=== PATIENT | female | born 1985 | race Caucasian/White ===

== ENCOUNTER 2017-10-31 16:07 | Inpatient (IN) ==
[2017-10-31 16:39] LABS: Basophils % 0.4 % (0.0-0.8); Eosinophils # 0.1 10*3/uL (0.0-0.87); Eosinophils % 0.9 % (0.00-10.9); Hematocrit 28.4 VOL% (35.7-47.0); Hemoglobin 9.3 GM/DL (12.0-16.0); Immature Granulocytes % 0.8 %; Immature Granulocytes Absolute 0.08 #; Lymphocytes # 2.8 10*3/uL (1.4-4.0); Lymphocytes % 26.9 % (21.3-54.2); Mean Corpuscular HGB Conc 32.7 GM/DL (32-36); Mean Corpuscular Hemoglobin 27 PG (27-34); Mean Corpuscular Volume 82.8 FL (87-102); Mean Platelet Volume 11.3 FL (9.6-12.0); Monocytes # 0.7 10*3/uL (0.11-0.8); Monocytes % 7.2 % (1.7-12.7); Neutrophils # 6.5 10*3/uL (1.4-7.4); Neutrophils % 63.8 % (38.7-73.9); Platelet Count 371 T/CUMM (130-400); Red Blood Count 3.43 MC/CUMM (3.8-5.5); Red Cell Distribution Width 13.8 % (9.3-17.3); White Blood Count 10.2 T/CUMM (4-12)
[2017-10-31 16:51] LABS: INR 0.9; PT Patient Result 9.4 SECS; Partial Thromboplastin Time 23.8 SECS (0-40)
[2017-10-31 17:00] LABS: Alanine Aminotransferase 15 U/L (13-56); Albumin 2.6 G/DL (3.4-5.0); Alkaline Phosphatase 127 U/L (45-117); Aspartate Amino Transferase 22 U/L (0-37); Bilirubin,Direct < 0.100 MG/DL (0.0-0.20); Bilirubin,Total < 0.39 MG/DL (0.2-1.0); Blood Urea Nitrogen 11 MG/DL (7-18); Calcium 9.1 MG/DL (8.5-10.1); Glucose 78 MG/DL (74-106); Osmolality,Calculated 267.1 MOS/KG (273-304); Potassium 4.2 MMOL/L (3.5-5.1); Sodium 135 MMOL/L (136-145); Total Protein 6.3 G/DL (6.4-8.3); Uric Acid 5.7 MG/DL (2.6-6.0)
[2017-10-31] MEDS ORDERED: MAGNESIUM SULF RIDER 4 GM in PREMIX 1 EACH IV ONE (17:45)
[2017-10-31] MEDS: LACTATED RINGERS 1,000 ML IV SCH (18:00)
[2017-10-31] MEDS: MAGNESIUM SULF DRIP 40 GM/1,000 ML ML IV SCH (18:30)
[2017-10-31] MEDS ORDERED: LABETALOL 100 MG TABLET ONE (20:28)
[2017-10-31] MEDS: LABETALOL 200 MG TABLET PO SCH (20:33)
[2017-10-31] MEDS: ACETAMINOPHEN 500 MG TABLET PO PRN (22:52)
[2017-11-01] MEDS: ACETAMINOPHEN 500 MG TABLET PO PRN ×3 (07:10→20:32)
[2017-11-01] MEDS: LABETALOL 200 MG TABLET PO SCH ×3 (08:04→20:31)
[2017-11-01] MEDS ORDERED: LABETALOL 100 MG TABLET ONE ×2 (08:04→13:54)
[2017-11-01] MEDS: BETAMETH SODIUM PHOS/ACETATE 30 MG/5 ML VIAL IM SCH (08:05)
[2017-11-01] MEDS: MAGNESIUM SULF DRIP 40 GM/1,000 ML ML IV SCH (15:02)
[2017-11-01] MEDS ORDERED: ONDANSETRON 4 MG/2 ML VIAL IV PRN (16:21)
[2017-11-01 16:35] LABS: Collection Time,Urine 24 HOURS; Total Volume,Urine 3850 ML (400-2000)
[2017-11-01 16:54] LABS: Total Protein 24 Hr Ur Result 4504 MG/24HR (0-149.1)
[2017-11-01] MEDS: LACTATED RINGERS 1,000 ML IV SCH ×2 (17:26→19:54)
[2017-11-01 18:16] LABS: Creatinine 24 Hr Urine Result 1.73 G/24HR (0.60-1.80); Creatinine Clearance Urine 145.39 ML/MIN (70-115)
[2017-11-02 07:55] VITALS: BP 157/86
[2017-11-02] MEDS: BETAMETH SODIUM PHOS/ACETATE 30 MG/5 ML VIAL IM SCH (08:06)
[2017-11-02] MEDS: LABETALOL 200 MG TABLET PO SCH (08:50)
[2017-11-02] MEDS ORDERED: LABETALOL 100 MG TABLET ONE (09:26)
[2017-11-02] MEDS ORDERED: LABETALOL 100 MG TABLET PO ONE (09:30)
[2017-11-02] MEDS: LACTATED RINGERS 1,000 ML IV SCH (09:33)
[2017-11-02] MEDS ORDERED: LABETALOL 200 MG TABLET PO SCH (17:00)
== END 2017-11-02 17:46 | disposition home or self-care (01) | DRG 782 ==
LOC: N.LDOUT 16:07 → N.LD 16:08
PROVIDERS: ADMIT Specialist; ATTEND Specialist

== ENCOUNTER 2017-11-03 23:10 | Inpatient (IN) ==
[2017-11-03] MEDS ORDERED: LACTATED RINGERS 1,000 ML IV SCH (23:45)
[2017-11-03] MEDS ORDERED: ONDANSETRON 4 MG/2 ML VIAL IV PRN (23:54)
[2017-11-03] MEDS ORDERED: BUTORPHANOL 2 MG/ML VIAL IV PRN (23:54)
[2017-11-03] MEDS ORDERED: FUROSEMIDE 40 MG/4 ML VIAL IV ONE (23:58)
[2017-11-03] MEDS ORDERED: FUROSEMIDE 40 MG/4 ML VIAL ONE (23:59)
[2017-11-04] MEDS ORDERED: ceFAZolin 2,000 MG in PREMIX 1 EACH IV ONE
[2017-11-04] MEDS ORDERED: OXYTOCIN/LR 20 UNIT/1,000 ML BAG IV ONE ×2 (00:07→01:40)
[2017-11-04] MEDS ORDERED: CITRIC ACID/SODIUM CITRATE 30 ML UDCUP ONE (00:14)
[2017-11-04] MEDS ORDERED: FAMOTIDINE 20 MG/2 ML VIAL IV ONE (00:17)
[2017-11-04] MEDS ORDERED: CITRIC ACID/SODIUM CITRATE 30 ML UDCUP PO ONE (00:17)
[2017-11-04] MEDS ORDERED: hydrALAZINE 20 MG/1 ML VIAL IV ONE (00:30)
[2017-11-04 00:43] LABS: Basophils % 0.1 % (0.0-0.8); Eosinophils % 0.2 % (0.00-10.9); Hematocrit 26.4 VOL% (35.7-47.0); Hemoglobin 8.5 GM/DL (12.0-16.0); Immature Granulocytes % 3.2 %; Immature Granulocytes Absolute 0.43 #; Lymphocytes # 3.6 10*3/uL (1.4-4.0); Mean Corpuscular HGB Conc 32.2 GM/DL (32-36); Mean Corpuscular Hemoglobin 27 PG (27-34); Mean Corpuscular Volume 84.6 FL (87-102); Mean Platelet Volume 11.6 FL (9.6-12.0); Monocytes # 1.1 10*3/uL (0.11-0.8); Monocytes % 8.4 % (1.7-12.7); Neutrophils # 8.2 10*3/uL (1.4-7.4); Neutrophils % 61.1 % (38.7-73.9); Platelet Count 400 T/CUMM (130-400); Red Blood Count 3.12 MC/CUMM (3.8-5.5); Red Cell Distribution Width 14.2 % (9.3-17.3); White Blood Count 13.4 T/CUMM (4-12)
[2017-11-04 00:58] LABS: Fibrinogen Quant Value 322 MG% (200-400); INR 0.9; PT Patient Result 9.2 SECS; Partial Thromboplastin Time < 21.0 SECS (0-40)
[2017-11-04 01:05] LABS: Alanine Aminotransferase 14 U/L (13-56); Albumin 2.5 G/DL (3.4-5.0); Alkaline Phosphatase 113 U/L (45-117); Aspartate Amino Transferase 20 U/L (0-37); Bilirubin,Total < 0.39 MG/DL (0.2-1.0); Blood Urea Nitrogen 16 MG/DL (7-18); Calcium 9.6 MG/DL (8.5-10.1); Glucose 87 MG/DL (74-106); Osmolality,Calculated 280.3 MOS/KG (273-304); Potassium 4.7 MMOL/L (3.5-5.1); Sodium 141 MMOL/L (136-145); Total Protein 5.7 G/DL (6.4-8.3)
[2017-11-04] MEDS ORDERED: MAGNESIUM SULF RIDER 100 ML IV ONE (01:09)
[2017-11-04] MEDS ORDERED: MAGNESIUM SULF DRIP 40 GM/1,000 ML ML IV SCH (01:30)
[2017-11-04] MEDS ORDERED: ONDANSETRON 4 MG/2 ML VIAL IV PRN (01:40)
[2017-11-04] MEDS ORDERED: ACETAMINOPHEN 325 MG TABLET PO PRN (01:40)
[2017-11-04] MEDS ORDERED: LANOLIN 50% CREAM 0.3 OZ TUBE TOP PRN (01:40)
[2017-11-04] MEDS ORDERED: DIPH/TET/ACEL PERT BOOSTER VACCINE 0.5 ML VIAL IM ONE (01:40)
[2017-11-04] MEDS ORDERED: IBUPROFEN 800 MG TABLET PO PRN (01:40)
[2017-11-04] MEDS ORDERED: BISACODYL 10 MG SUPP RECTAL PRN (01:40)
[2017-11-04] MEDS ORDERED: HYDROCORTISONE 2.5% RECTAL CREAM 30 GM TUBE TOP PRN (01:40)
[2017-11-04] MEDS ORDERED: oxyCODONE/ACETAMINOPHEN 5-325 MG TABLET PO PRN (01:40)
[2017-11-04] MEDS ORDERED: BENZOCAINE 20%/MENTHOL 0.5% SPRAY 56 GM CAN TOP PRN (01:40)
[2017-11-04] MEDS ORDERED: MEASLES/MUMPS/RUBELLA VACCINE 0.5 ML VIAL SUBCUT ONE (01:40)
[2017-11-04] MEDS ORDERED: WITCH HAZEL PADS 100/JAR TOP PRN (01:40)
[2017-11-04] MEDS ORDERED: RHO(D) IMMUNE GLOBULIN 300 MCG SYRINGE IM ONE (01:40)
[2017-11-04 02:18] LABS: Cord Arterial Blood HCO3 22.2 MMOL/L
[2017-11-04 02:22] LABS: Cord Venous Blood HCO3 23.7 MMOL/L; Cord Venous Blood PCO2 41.7 MMHG; Cord Venous Blood PO2 28.4
[2017-11-04] MEDS: LABETALOL 200 MG TABLET PO SCH ×3 (02:22→17:37)
[2017-11-04] MEDS ORDERED: KETAMINE 500 MG/10 ML VIAL ONE (03:33)
[2017-11-04] MEDS ORDERED: MORPHINE 10 MG/10 ML VIAL ONE (03:33)
[2017-11-04] MEDS ORDERED: fentaNYL 100 MCG/2 ML VIAL ONE (03:36)
[2017-11-04] MEDS ORDERED: DEXAMETHASONE 10 MG/1 ML VIAL ONE (03:40)
[2017-11-04 04:13] LABS: Apearance,Urine CLOUDY (Clear); Bacteria,Urine Occasional /HPF (Few); Bilirubin,Urine Negative (Negative); Blood, Urine Negative (Negative); Glucose,Urine (UA) Negative (Negative); Ketones,Urine Negative (Negative); Mucus,Urine Many /LPF (Occasional); Nitrite,Urine Negative (Negative); Protein,Urine >=500 MG/DL; RBC,Urine 3 /HPF (0-4); Squamous Epithelial Cell,Urine Occasional /HPF (0-10); Urine Color Amber (Yellow); Urine Specific Gravity 1.032 (1.001-1.035); Urine Urobilinogen < 2.0 EU/DL (0.2-1.0)
[2017-11-04 04:15] LABS: WBC,Urine 4 /HPF (0-6)
[2017-11-04] MEDS ORDERED: LACTATED RINGERS 1,000 ML IV ONE (04:51)
[2017-11-04 08:44] LABS: Basophils % 0.1 % (0.0-0.8); Hematocrit 24.6 VOL% (35.7-47.0); Immature Granulocytes % 1.3 %; Immature Granulocytes Absolute 0.27 #; Lymphocytes # 1.9 10*3/uL (1.4-4.0); Lymphocytes % 9.1 % (21.3-54.2); Mean Corpuscular HGB Conc 32.5 GM/DL (32-36); Mean Corpuscular Hemoglobin 28 PG (27-34); Mean Corpuscular Volume 84.5 FL (87-102); Mean Platelet Volume 11.1 FL (9.6-12.0); Monocytes # 1.3 10*3/uL (0.11-0.8); Monocytes % 6.1 % (1.7-12.7); NRBC # 0.05 10*3/uL; Neutrophils # 17.8 10*3/uL (1.4-7.4); Neutrophils % 83.4 % (38.7-73.9); Platelet Count 379 T/CUMM (130-400); Red Blood Count 2.91 MC/CUMM (3.8-5.5); Red Cell Distribution Width 13.9 % (9.3-17.3); White Blood Count 21.3 T/CUMM (4-12)
[2017-11-04] MEDS ORDERED: LABETALOL 200 MG TABLET PO SCH (09:00)
[2017-11-04] MEDS ORDERED: FUROSEMIDE 40 MG/4 ML VIAL IV ONE ×2 (09:00→23:30)
[2017-11-04 09:12] LABS: Band Neutrophils 1 % (0-10); Giant Platelets Few; Hypochromasia 1+; Lymphocytes 10 % (20-55); Microcytosis Slight; Nucleated Red Blood Cells 1 (0-5); Platelet Estimate Adequate; Segmented Neutrophils 85 % (50-85); Total Cells Counted 100
[2017-11-04] MEDS: MULTIVITAMIN (PRENATAL) TABLET PO SCH (09:30)
[2017-11-04] MEDS: ceFAZolin 2,000 MG in PREMIX 1 EACH IV SCH ×2 (09:30→17:34)
[2017-11-04] MEDS: DOCUSATE SODIUM 100 MG CAPSULE PO SCH ×2 (09:30→20:46)
[2017-11-04] MEDS: oxyCODONE/ACETAMINOPHEN 5-325 MG TABLET PO PRN (22:50)
[2017-11-05] MEDS: LABETALOL 200 MG TABLET PO SCH ×3 (01:45→18:15)
[2017-11-05] MEDS ORDERED: SIMETHICONE CHEW 80 MG TABLET PO PRN (08:54)
[2017-11-05] MEDS: MULTIVITAMIN (PRENATAL) TABLET PO SCH (09:01)
[2017-11-05] MEDS: DOCUSATE SODIUM 100 MG CAPSULE PO SCH ×2 (09:01→20:27)
[2017-11-05] MEDS: oxyCODONE/ACETAMINOPHEN 5-325 MG TABLET PO PRN ×3 (09:01→23:53)
[2017-11-05] MEDS ORDERED: MAGNESIUM HYDROXIDE SUSP 30 ML UDCUP PO PRN (20:11)
[2017-11-05] MEDS ORDERED: oxyCODONE/ACETAMINOPHEN 5-325 MG TABLET PO PRN (20:34)
[2017-11-05] MEDS ORDERED: METOCLOPRAMIDE 10 MG TABLET PO SCH (21:00)
[2017-11-06] MEDS: LABETALOL 200 MG TABLET PO SCH ×2 (01:01→09:28)
[2017-11-06] MEDS: oxyCODONE/ACETAMINOPHEN 5-325 MG TABLET PO PRN (04:24)
[2017-11-06] MEDS ORDERED: METOCLOPRAMIDE 10 MG TABLET PO SCH ×2 (05:00→08:00)
[2017-11-06] MEDS: DOCUSATE SODIUM 100 MG CAPSULE PO SCH (09:28)
[2017-11-06] MEDS: MULTIVITAMIN (PRENATAL) TABLET PO SCH (09:28)
[2017-11-06 11:34] VITALS: BP 139/86
== END 2017-11-06 12:30 | disposition home or self-care (01) | DRG 766 ==
LOC: N.LDOUT 23:10 → N.LD 23:12 → N.OB 11-05 08:37
PROVIDERS: ADMIT Specialist; ATTEND Specialist
PROC: LDCSECT (ICD-10-PCS; 2017-11-04 00:45)

== ENCOUNTER 2020-11-30 05:27 | Inpatient (IN) ==
[2020-11-30] MEDS ORDERED: ceFAZolin 2,000 MG in PREMIX 1 EACH IV ONE (05:37)
[2020-11-30] MEDS ORDERED: CITRIC ACID/SODIUM CITRATE 30 ML UDCUP PO ONE (05:37)
[2020-11-30] MEDS ORDERED: LACTATED RINGERS 1,000 ML IV SCH (06:00)
[2020-11-30 06:31] LABS: Basophils % 0.2 % (0.0-0.8); Eosinophils % 0.1 % (0.00-10.9); Hematocrit 26.7 VOL% (35.7-47.0); Immature Granulocytes % 2.4 %; Immature Granulocytes Absolute 0.36 #; Lymphocytes # 1.9 10*3/uL (1.4-4.0); Lymphocytes % 12.6 % (21.3-54.2); Mean Corpuscular Volume 76.1 FL (87-102); Mean Platelet Volume 10.3 FL (9.6-12.0); Monocytes % 4.8 % (1.7-12.7); NRBC # 0.04 10*3/uL; Neutrophils % 79.9 % (38.7-73.9); Platelet Count 454 T/CUMM (130-400); Red Blood Count 3.51 MC/CUMM (3.8-5.5); Red Cell Distribution Width 18.9 % (9.3-17.3); White Blood Count 15.1 T/CUMM (4-12)
[2020-11-30] MEDS ORDERED: OXYTOCIN/LR 20 UNIT/1,000 ML BAG IV ONE ×2 (06:40→10:25)
[2020-11-30] MEDS ORDERED: FAMOTIDINE 20 MG/2 ML VIAL IV ONE (06:40)
[2020-11-30] MEDS ORDERED: LACTATED RINGERS 1,000 ML IV ONE (06:40)
[2020-11-30 07:02] LABS: Alanine Aminotransferase 16 U/L (13-56); Albumin 2.8 G/DL (3.4-5.0); Alkaline Phosphatase 134 U/L (45-117); Aspartate Amino Transferase 18 U/L (0-37); Bilirubin,Total < 0.39 MG/DL (0.2-1.0); Blood Urea Nitrogen 9 MG/DL (7-18); Calcium 9.6 MG/DL (8.5-10.1); Carbon Dioxide 20 MMOL/L (21-32); Estimated Glom Filtration Rate 138 ML/MIN; Glucose 136 MG/DL (74-106); Osmolality,Calculated 264.5 MOS/KG (273-304); Sodium 132 MMOL/L (136-145); Total Protein 7.6 G/DL (6.4-8.3)
[2020-11-30] MEDS ORDERED: miSOPROStoL 200 MCG TABLET ONE (07:29)
[2020-11-30] MEDS ORDERED: METHYLERGONOVINE 0.2 MG/1 ML AMP ONE (07:29)
[2020-11-30] MEDS ORDERED: CARBOPROST TROMETHAMINE 250 MCG/ML AMP IM ONE (07:30)
[2020-11-30] MEDS ORDERED: DEXAMETHASONE 4 MG/1 ML VIAL ONE (09:03)
[2020-11-30] MEDS ORDERED: BUPIVACAINE SPINAL 0.75% 2 ML AMP SPINAL ONE (09:03)
[2020-11-30] MEDS ORDERED: MORPHINE 10 MG/10 ML VIAL ONE (09:03)
[2020-11-30] MEDS ORDERED: ACETAMINOPHEN 1,000 MG/100 ML VIAL IV ONE (09:03)
[2020-11-30] MEDS ORDERED: ONDANSETRON 4 MG/2 ML VIAL ONE (09:03)
[2020-11-30] MEDS ORDERED: propofoL 200 MG/20 ML VIAL IV ONE (09:03)
[2020-11-30] MEDS ORDERED: PHENYLEPHRINE 1 MG/10 ML SYRINGE IV ONE (09:03)
[2020-11-30] MEDS ORDERED: KETOROLAC 30 MG/1 ML VIAL ONE (09:03)
[2020-11-30] MEDS: LABETALOL 200 MG TABLET PO SCH ×2 (09:11→22:24)
[2020-11-30 10:03] LABS: Cord Venous Blood HCO3 21.2 MMOL/L; Cord Venous Blood PCO2 46.3 MMHG; Cord Venous Blood PO2 24.3
[2020-11-30 10:09] LABS: Bacteria,Urine Occasional /HPF (Few); Bilirubin,Urine Negative (Negative); Blood, Urine Negative (Negative); Glucose,Urine (UA) Negative (Negative); Ketones,Urine 5 mg/dL (Negative); Mucus,Urine Occasional /LPF (Occasional); Nitrite,Urine Negative (Negative); Protein,Urine 100 MG/DL; RBC,Urine 1 /HPF (0-4); Squamous Epithelial Cell,Urine Occasional /HPF (0-10); Urine Appearance CLEAR (Clear); Urine Color Yellow (Yellow); Urine Specific Gravity 1.017 (1.001-1.035)
[2020-11-30 10:12] LABS: Urine Urobilinogen < 2.0 EU/DL (0.2-1.0)
[2020-11-30] MEDS ORDERED: DIPH/TET/ACEL PERT BOOSTER VACCINE 0.5 ML VIAL IM ONE (10:25)
[2020-11-30] MEDS ORDERED: ONDANSETRON 4 MG/2 ML VIAL IV PRN (10:25)
[2020-11-30] MEDS ORDERED: HYDROCORTISONE 2.5% RECTAL CREAM 30 GM TUBE TOP PRN (10:25)
[2020-11-30] MEDS ORDERED: LANOLIN 50% CREAM 0.3 OZ TUBE TOP PRN (10:25)
[2020-11-30] MEDS ORDERED: RHO(D) IMMUNE GLOBULIN 300 MCG SYRINGE IM ONE (10:25)
[2020-11-30] MEDS ORDERED: IBUPROFEN 800 MG TABLET PO PRN (10:25)
[2020-11-30] MEDS ORDERED: BISACODYL 10 MG SUPP RECTAL PRN (10:25)
[2020-11-30] MEDS ORDERED: BENZOCAINE 20%/MENTHOL 0.5% SPRAY 56 GM CAN TOP PRN (10:25)
[2020-11-30] MEDS ORDERED: ACETAMINOPHEN 325 MG TABLET PO PRN (10:25)
[2020-11-30] MEDS ORDERED: WITCH HAZEL PADS 100/JAR TOP PRN (10:25)
[2020-11-30] MEDS ORDERED: MEASLES/MUMPS/RUBELLA VACCINE 0.5 ML VIAL SUBCUT ONE (10:25)
[2020-11-30] MEDS ORDERED: HYDROmorphone 2 MG/1 ML VIAL IV PRN (12:36)
[2020-11-30] MEDS ORDERED: miSOPROStoL 200 MCG TABLET PO ONE (13:04)
[2020-11-30] MEDS: ACETAMINOPHEN 500 MG TABLET PO SCH ×2 (15:47→22:25)
[2020-11-30] MEDS: KETOROLAC 30 MG/1 ML VIAL IV SCH ×2 (16:00→22:24)
[2020-11-30] MEDS ORDERED: SODIUM CHLORIDE 0.9% 100 ML IV ONE (16:35)
[2020-11-30] MEDS: ceFAZolin 1,000 MG in SYRINGE 1 EACH IV SCH (16:47)
[2020-11-30] MEDS: oxyCODONE/ACETAMINOPHEN 5-325 MG TABLET PO PRN (20:27)
[2020-11-30] MEDS: DOCUSATE SODIUM 100 MG CAPSULE PO SCH (22:23)
[2020-12-01] MEDS: ceFAZolin 1,000 MG in SYRINGE 1 EACH IV SCH (02:13)
[2020-12-01] MEDS: oxyCODONE/ACETAMINOPHEN 5-325 MG TABLET PO PRN ×4 (02:17→20:04)
[2020-12-01] MEDS: KETOROLAC 30 MG/1 ML VIAL IV SCH (05:19)
[2020-12-01] MEDS: ACETAMINOPHEN 500 MG TABLET PO SCH (05:19)
[2020-12-01 06:12] LABS: Basophils % 0.2 % (0.0-0.8); Eosinophils # 0.1 10*3/uL (0.0-0.87); Eosinophils % 0.5 % (0.00-10.9); Hematocrit 20.5 VOL% (35.7-47.0); Immature Granulocytes % 1.6 %; Immature Granulocytes Absolute 0.21 #; Lymphocytes # 2.6 10*3/uL (1.4-4.0); Lymphocytes % 19.6 % (21.3-54.2); Mean Corpuscular HGB Conc 30.2 GM/DL (32-36); Mean Corpuscular Volume 75.6 FL (87-102); Mean Platelet Volume 10.2 FL (9.6-12.0); Monocytes % 8.8 % (1.7-12.7); NRBC # 0.02 10*3/uL; Neutrophils % 69.3 % (38.7-73.9); Platelet Count 333 T/CUMM (130-400); Red Blood Count 2.71 MC/CUMM (3.8-5.5); Red Cell Distribution Width 19.2 % (9.3-17.3); White Blood Count 13.1 T/CUMM (4-12)
[2020-12-01 06:41] LABS: Hemoglobin 6.2 GM/DL (12.0-16.0)
[2020-12-01 06:50] LABS: Band Neutrophils 1 % (0-10); Eosinophils 1 % (0-10); Lymphocytes 13 % (20-55); Segmented Neutrophils 76 % (50-85); Total Cells Counted 100
[2020-12-01 06:51] LABS: Hypochromasia 1+; Microcytosis 1+; Tear Drop Cells Slight
[2020-12-01 06:52] LABS: Platelet Estimate Normal
[2020-12-01] MEDS: DOCUSATE SODIUM 100 MG CAPSULE PO SCH ×2 (08:34→20:04)
[2020-12-01] MEDS: FERROUS SULFATE 325 MG TABLET PO SCH ×2 (08:35→20:04)
[2020-12-01] MEDS: LABETALOL 200 MG TABLET PO SCH ×2 (08:35→20:04)
[2020-12-01] MEDS ORDERED: IRON (CARBONYL)/VIT C/B12/FA TABLET PO SCH (09:00)
[2020-12-01] MEDS: MAGNESIUM HYDROXIDE SUSP 30 ML UDCUP PO PRN ×2 (15:05→20:04)
[2020-12-01] MEDS ORDERED: SIMETHICONE CHEW 80 MG TABLET PO PRN (15:13)
[2020-12-01] MEDS ORDERED: oxyCODONE/ACETAMINOPHEN 5-325 MG TABLET PO PRN (23:53)
[2020-12-02] MEDS: oxyCODONE/ACETAMINOPHEN 5-325 MG TABLET PO PRN ×3 (00:16→10:00)
[2020-12-02] MEDS: MAGNESIUM HYDROXIDE SUSP 30 ML UDCUP PO PRN (08:45)
[2020-12-02] MEDS: DOCUSATE SODIUM 100 MG CAPSULE PO SCH (08:45)
[2020-12-02] MEDS: LABETALOL 200 MG TABLET PO SCH (08:46)
[2020-12-02] MEDS: FERROUS SULFATE 325 MG TABLET PO SCH (08:46)
[2020-12-02 11:46] VITALS: BP 153/78
== END 2020-12-02 11:58 | disposition home or self-care (01) | DRG 787 ==
LOC: N.LDOUT 05:27 → N.LD 05:30 → N.OB 15:35
PROVIDERS: ADMIT Specialist; ATTEND Specialist
PROC: LDCSECT (ICD-10-PCS; 2020-11-30 09:00)